=== PATIENT | female | born 1965 | race American Indian/Alaskan Native ===

== ENCOUNTER 2017-11-14 12:35 | Outpatient (CLI) | payer OTHER ==
[2017-11-14] MEDS ORDERED: PROVENTIL IH ONE (13:12)
== END 2017-11-14 12:36 | disposition home or self-care (01) ==
LOC: PF 12:35
PROVIDERS: ATTEND Internal Medicine
DX: J44.9 Chronic obstructive pulmonary disease, unspecified (principal); J96.90 Respiratory failure, unspecified, unspecified whether with hypoxia or hypercapnia; M06.9 Rheumatoid arthritis, unspecified; I10 Essential (primary) hypertension; E11.9 Type 2 diabetes mellitus without complications
CPT/HCPCS: 94060; 94640